=== PATIENT | male | born 1985 | race Caucasian/White ===

== ENCOUNTER 2022-05-08 13:38 | Emergency (ER) | payer OTHER ==
[~2022-05-08] VITALS: Ht 170.2 cm; Wt 63.0 kg
[2022-05-08 14:01] VITALS: BP 132/97
[2022-05-08] MEDS ORDERED: IBUPROFEN 800 MG TAB PO ONE (14:25)
--- NOTE | 2022-05-08 14:26 | NUR ---
PT TAKEN TO XRAY VIA W/C
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
[2022-05-08] MEDS ORDERED: CEPH-588 PO (15:32)
[2022-05-08] MEDS ORDERED: IBUP-2218 PO (15:32)
--- NOTE | 2022-05-08 15:38 | NUR ---
Patient discharged with v/s stable. Written and verbal after care instructions ABOUT CELLULITIS given and explained. Patient alert, oriented and verbalized understanding of instructions. Ambulatory with steady gait. All questions addressed prior to discharge. ID band removed. Patient advised to follow up with PMD. Rx of KEFLEX AND IBUPROFEN given. Patient educated on indication of medication including possible reaction and side effects. Opportunity to ask questions provided and answered.
== END 2022-05-08 15:38 | disposition home or self-care (01) ==
LOC: MED 13:38
DX: L03.011 Cellulitis of right finger (principal); Z88.5 Allergy status to narcotic agent
CPT/HCPCS: 73140; 99283